=== PATIENT | male | born 1975 | race African-American/Black ===

== ENCOUNTER 2017-12-28 16:18 | Emergency (ER) | payer MEDICAID ==
[~2017-12-28] VITALS: Ht 177.8 cm; Wt 91.2 kg
[2017-12-28] MEDS ORDERED: CEPHALEXIN500 MG ORAL (19:10)
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
[2017-12-28] MEDS ORDERED: Bacitracin Oint UD TOPIC ONE (19:15)
[2017-12-28 20:03] VITALS: BP 133/90
[2017-12-28 20:04] VITALS: BP 133/90
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
== END 2017-12-28 20:05 | disposition home or self-care (01) ==
LOC: EMR 17:20
DX: S40.851A Superficial foreign body of right upper arm, initial encounter (principal); X58.XXXA Exposure to other specified factors, initial encounter; Y92.9 Unspecified place or not applicable
CPT/HCPCS: 10120; 99283